=== PATIENT | female | born 1990 | race Caucasian/White ===

== ENCOUNTER 2019-04-24 09:22 | Inpatient (IN) | payer OTHER ==
[2019-04-24] MEDS ORDERED: LACTATED RINGERS 1,000 ML ONE ×2 (10:28→11:04)
--- NOTE | 2019-04-24 10:56 | Anesthesia Consultation ---
Anesthesia Consult and Med Hx Date of service: 04/24/19 - Airway Anesthetic Teeth Evaluation: Good ROM Head & Neck: Adequate Mental/Hyoid Distance: Adequate Mallampati Class: Class II Intubation Access Assessment: Probably Good - Pulmonary Exam CTA: Yes - Cardiac Exam Cardiac Exam: RRR - Pre-Operative Health Status ASA Pre-Surgery Classification: ASA2 Proposed Anesthetic Plan: Spinal - Pulmonary Hx Smoking: No Hx Asthma: No - Cardiovascular System Hx Hypertension: No - Central Nervous System Hx Seizures: No Hx Psychiatric Problems: No - Gastrointestinal Hx Gastroesophageal Reflux Disease: Yes - Endocrine Hx Renal Disease: No Hx Hypothyroidism: No Hx Hyperthyroidism: No - Hematic Hx Anemia: No Hx Sickle Cell Disease: No - Other Systems Hx Alcohol Use: No
--- NOTE | 2019-04-24 10:56 | Anesthesia Day of Surgery ---
Anesthesia Day of Surgery - Day of Surgery Patient Examined: Yes Patient H&P Reviewed: Yes Patient is NPO: Yes
[2019-04-24] MEDS ORDERED: DEXMEDETOMIDINE IV ONE (11:02)
[2019-04-24] MEDS ORDERED: PEPCID IV ONE (11:23)
[2019-04-24] MEDS ORDERED: BICITRA PO ONE (11:23)
[2019-04-24] MEDS ORDERED: REGLAN IV ONE (11:23)
[2019-04-24] MEDS ORDERED: PHENERGAN PO PRN (11:28)
[2019-04-24] MEDS ORDERED: NUBAIN IV PRN (11:28)
[2019-04-24] MEDS ORDERED: NARCAN 0.4 MG/1 ML IV PRN ×2 (11:28→13:43)
[2019-04-24] MEDS ORDERED: DILAUDID IV PRN ×2 (11:28)
[2019-04-24] MEDS ORDERED: ZOFRAN IV PRN ×2 (11:28→13:43)
[2019-04-24] MEDS ORDERED: PHENERGAN PR PRN (11:28)
[2019-04-24 11:43] LABS: Basophils % (Auto) 0.2 % (0.0-1.8); Eosinophils # (Auto) 0.1 K/mm3 (0.0-0.4); Eosinophils % (Auto) 1.3 % (0.0-4.3); Hematocrit 37.4 % (30.3-42.9); Hemoglobin 12.6 gm/dl (10.1-14.3); Lymphocytes # (Auto) 2.9 K/mm3 (1.2-5.4); Lymphocytes % (Auto) 25.4 % (13.4-35.0); Mean Corpuscular HGB Conc 34 % (30-34); Mean Corpuscular Volume 90 fl (79-97); Monocytes # (Auto) 0.8 K/mm3 (0.0-0.8); Monocytes % (Auto) 7.2 % (0.0-7.3); Platelet Count 133 K/mm3 (140-440); Red Blood Count 4.14 M/mm3 (3.65-5.03); Red Cell Distribution Width 14.5 % (13.2-15.2)
[2019-04-24] MEDS ORDERED: ANCEF/STERILE WATER 2 GM/20 ML 2 GM/20 ML SYRINGE IV NR (12:00)
[2019-04-24] MEDS ORDERED: LACTATED RINGERS 1,000 ML IV SCH (12:00)
[2019-04-24] MEDS ORDERED: SODIUM CHLORIDE FLUSH SYRINGE 10 ML IV NR (12:00)
[2019-04-24] MEDS ORDERED: TORADOL IV SCH (12:00)
[2019-04-24] MEDS ORDERED: PITOCin/NS 20 UNIT/1000ML DRIP 20 UNITS/1,000 ML BAG IV SCH ×2 (12:00→14:00)
[2019-04-24] MEDS ORDERED: TYLENOL PO SCH ×2 (12:00)
--- NOTE | 2019-04-24 12:03 | History and Physical Report ---
History of Present Illness Date of examination: 04/24/19 Date of admission: 04/24/19 09:22 Chief complaint: here at termfor repeat section History of present illness: G$P2 at 40 wks for repeat delivery. Had x2 prior sections. Past History Past Medical History: no pertinent history - Obstetrical History : 4 Medications and Allergies Allergies Allergy/AdvReac Type Severity Reaction Status Date / Time No Known Allergies Allergy Verified 04/24/19 10:38 Active Meds: Active Medications Acetaminophen (Tylenol) 650 mg PO Q6H RAYMOND Stop: 04/26/19 06:01 Hydromorphone HCl (Dilaudid) 0.5 mg IV Q5M PRN PRN Reason: Breakthrough Pain Stop: 04/24/19 23:59 Hydromorphone HCl (Dilaudid) 0.5 mg IV Q4H PRN PRN Reason: breakthrough pain > 7/10 Oxytocin/Sodium Chloride (Pitocin/Ns 20 Unit/1000ml Drip) 20 units in 1,000 mls @ 0 mls/hr IV TITR RAYMOND Lactated Ringer's (Lactated Ringers) 1,000 mls @ 2,250 mls/hr IV PREOP RAYMOND Stop: 04/25/19 12:27 Cefazolin Sodium (Ancef/Sterile Water 2 Gm/20 Ml) 2 gm in 20 mls @ 80 mls/hr IV PREOP NR; Protocol Stop: 04/24/19 23:59 Ketorolac Tromethamine (Toradol) 15 mg IV Q6HR RAYMOND Stop: 04/26/19 06:01 Nalbuphine HCl (Nubain) 10 mg IV Q2H PRN PRN Reason: Pain, Moderate (4-6) Naloxone HCl (Narcan 0.4 Mg/1 Ml) 0.2 mg IV Q2MIN PRN PRN Reason: Res Rate </= 8 or 02 SAT < 92% Ondansetron HCl (Zofran) 4 mg IV Q8H PRN PRN Reason: Nausea And Vomiting Promethazine HCl (Phenergan) 25 mg PO Q6H PRN PRN Reason: Nausea And Vomiting Promethazine HCl (Phenergan) 25 mg MS Q6H PRN PRN Reason: Nausea And Vomiting Sodium Chloride (Sodium Chloride Flush Syringe 10 Ml) 10 ml IV PRN NR Stop: 04/25/19 11:59 Review of Systems All systems: negative - Vital Signs Vital signs: Vital Signs Temp Pulse Resp BP 98.0 F 80 16 138/84 04/24/19 09:41 04/24/19 09:41 04/24/19 09:41 04/24/19 09:41 Temp Pulse Resp BP Pulse Ox 98.0 F 99 H 20 131/72 97 04/24/19 09:41 04/24/19 11:54 04/24/19 11:45 04/24/19 11:45 04/24/19 11:54 - Physical Exam Breasts: Positive: deferred Cardiovascular: Regular rate, Normal S1, Normal S2 Lungs: Positive: Clear to auscultation Abdomen: Positive: normal appearance, distention - Obstetrical Uterine Contraction Pattern: Irregular Results Result Diagrams: 04/24/19 10:10 Abnormal lab results 04/24/19 Range/Units 10:10 WBC 11.5 H (4.5-11.0) K/mm3 Plt Count 133 L (140-440) K/mm3 All other labs normal. Assessment and Plan - Patient Problems (1) Previous delivery affecting , antepartum Current Visit: Yes Status: Acute (2) delivery due to previous obstetrical trauma, delivered, current hospitalization Current Visit: Yes Status: Acute
[2019-04-24] MEDS ORDERED: WATER FOR IRRIG STERILE IR ONE (12:31)
[2019-04-24] MEDS ORDERED: NACL 0.9% IR ONE (12:31)
[2019-04-24] MEDS ORDERED: DIPRIVAN 10 MG/ML IV ONE (13:15)
[2019-04-24] MEDS ORDERED: NEO SYNEPHRINE ONE (13:21)
[2019-04-24] MEDS ORDERED: ZOFRAN ONE (13:21)
[2019-04-24] MEDS ORDERED: TYLENOL PO PRN (13:43)
[2019-04-24] MEDS ORDERED: LANSINOH TP PRN (13:43)
[2019-04-24] MEDS ORDERED: TUCKS PAD TP PRN (13:43)
--- NOTE | 2019-04-24 14:02 | Post Anesthesia Evaluation ---
- Post Anesthesia Evaluation Patient Participated: Yes Airway Patent: Yes Stable Respiratory Function: Yes Nausea/Vomiting: No Temp > 96.8F: Yes Pain Manageable: Yes Adequeate Hydration: Yes Anesthesia Complications: No Block Receding Appropriately: Yes
--- NOTE | 2019-04-24 14:09 | Operative Report ---
Operative Report Operative Report: Date of surgery: 04/24/2019. Admitting diagnoses: Term , previous sections, probable reginald toneal adhesions. Postoperative diagnoses: The same; omental adhesions confirmed. Procedures: Low segment transverse section and lysis of adhesions. Surgeon: MIKI Lopes MD Granite Setter: Keya Guzmán CRNA Anesthesia: Spinal block. Conditions: None Estimated blood loss 600 mL. Findings: There was a live baby boy in cephalic presentation. Baby weighed 7 lbs. 15 oz. scores 8 and 9. Both ovaries and fallopian tubes were grossly normal. There was an omental adhesion involving the greater omentum to the anterior parietal peritoneum just inferior to the umbilical stump. The uterus was unremarkable gravid structure. Procedure in details: She was taken to the operating room and given spinal blockade. She had an indwelling Edwards catheter. Patient was then put in the straight supine position with a slight left lateral tilt. She was prepped in the abdomen. The drapes were placed. A timeout was done. With the go ahead from the regional sales executive the operation begun with excision of the previous scar which had formed into a keloid. This was along the full length of a midline longitudinal subumbilical incision. After excision of the keloid incision was carried across the subcutaneous layer to the fascia which was also divided longitudinally. The anterior parietal peritoneum was easily identified and divided. With adequate opening into the abdominal cavity an alexxis retractor was placed. The bladder blade was applied. The uterovesical peritoneal flap was divided transversely allowing the bladder to be displaced caudally. The uterine incision was placed transversely in the lower segment. The cavity of the uterus was entered and bluntly with the Cassandra's forceps. The bandage scissors was used to control the direction of the uterine incision. The amniotic sac was ruptured with clear fluid. The head of the was lifted out of the false pelvis and delivered through the incision with fundal pressure. The airways were bulb suctioned and beginning with the mouth. The rest of the baby was delivered by continuing fundal pressure as well as traction on the mandibular processes of the babies jaw. The umbilical cord was double clamped and divided and the baby safely passed onto the pediatric team. Cord blood sample was taken for routine analysis. The placenta was moderately removed from the uterine cavity which was thereafter explored and was empty of any placental remnants. The uterine there are incision was repaired in 2 layers with #1 Vicryl. Hemostasis was excellent. The greater omental adhesion was divided and tied off with 2-0 Vicryl. The peritoneal cavity was again checked for hemostasis and this was satisfactory. The fascia and anterior parietal peritoneal was repaired in one block using loop PDS #1. The subcutaneous layer was hemostatic. The skin was closed subcuticularly with 4-0 Vicryl on a Nima needle. All sponges and instruments were accounted for. There were no complications. The estimated blood loss was 600 mL. The patient was transferred to the recovery room in very good condition.
[2019-04-24] MEDS: TORADOL IV PRN (18:00)
[2019-04-24] MEDS: LACTATED RINGERS 1,000 ML IV SCH (20:27)
[2019-04-24] MEDS: ANCEF/NS 1 GM/50 ML 1 GM/50 ML BAG IV SCH (20:33)
[2019-04-24] MEDS: MORPHINE IV PRN (21:12)
[2019-04-25] MEDS: TORADOL IV PRN ×2 (00:01→06:00)
[2019-04-25] MEDS: MORPHINE IV PRN (02:00)
[2019-04-25 02:04] LABS: Hematocrit 36.7 % (30.3-42.9); Hemoglobin 12.3 gm/dl (10.1-14.3)
[2019-04-25] MEDS: ANCEF/NS 1 GM/50 ML 1 GM/50 ML BAG IV SCH (04:03)
[2019-04-25] MEDS: LACTATED RINGERS 1,000 ML IV SCH (04:06)
--- NOTE | 2019-04-25 10:22 | Progress Note ---
Assessment and Plan A: POD #1 Stable P: Follow Routine PostOp Orders Anticipate D/C home in AM Subjective - Subjective Date of service: 04/25/19 Patient reports: appetite normal, voiding normally, pain well controlled, flatus, ambulating normally Revloc: doing well, bottle feeding Objective - Vital Signs Latest vital signs: Vital Signs Temp Pulse Resp BP BP Pulse Ox 04/25/19 08:37 98.6 F 79 18 125/70 95 04/25/19 05:09 98.2 F 85 18 126/61 93 04/25/19 04:45 98.2 F 85 18 126/61 96 04/25/19 01:20 98.5 F 92 H 18 116/73 95 04/24/19 21:21 97.6 F 87 18 121/58 94 04/24/19 15:45 98.1 F 70 18 102/56 04/24/19 14:30 61 16 102/56 99 04/24/19 14:15 80 17 100/50 99 04/24/19 14:00 78 19 96/52 99 04/24/19 13:55 73 16 98/53 96 04/24/19 13:51 98.6 F 74 18 93/50 96 04/24/19 11:54 99 H 97 04/24/19 11:49 86 97 04/24/19 11:45 82 20 131/72 04/24/19 11:44 78 96 04/24/19 11:42 80 131/72 Intake and Output 04/24/19 04/25/19 04/25/19 22:59 06:59 14:59 Intake Total 350 1556.25 120 Output Total 200 1000 Balance 150 556.25 120 Intake: IV 350 956.25 ANCEF/NS 1 GM/50 ML 1 gm 50 In 50 ml @ 100 mls/hr IV Q8H RAYMOND Rx#:[id number] Lactated Ringers 1,000 ml 956.25 @ 125 mls/hr IV DIRECT RAYMOND Rx#:[id number] Oral 600 120 Output: Urine 200 1000 Indwelling Catheter 400 Void 600 Other: Total, Intake Amount 240 120 Total, Output Amount 600 # Voids Void 1 - Exam Breasts: Present: normal Cardiovascular: Present: Regular rate Lungs: Present: Clear to auscultation, Normal air movement Abdomen: Present: normal appearance, soft, normal bowel sounds Uterus: Present: normal, firm, fundal height below umbilicus Extremities: Present: normal Incision: Present: normal, dry, dressed - Labs Labs: Abnormal lab results 04/24/19 Range/Units 10:10 WBC 11.5 H (4.5-11.0) K/mm3 Plt Count 133 L (140-440) K/mm3
[2019-04-25] MEDS: IBUPROFEN PO SCH ×2 (10:55→17:33)
[2019-04-25] MEDS: PERCOCET 5/325 PO PRN ×2 (14:59→20:42)
[2019-04-26] MEDS: IBUPROFEN PO SCH ×2 (01:37→09:54)
[2019-04-26] MEDS: PERCOCET 5/325 PO PRN ×2 (05:49→12:10)
--- NOTE | 2019-04-26 10:21 | Progress Note ---
Assessment and Plan A: POD #2 Stable P: Follow Routine PostOp Orders D/C Home today per patient request Depo Provera 150mg IM prior to discharge RTO in one Week Subjective - Subjective Date of service: 04/26/19 Patient reports: appetite normal, voiding normally, pain well controlled, flatus, ambulating normally : doing well, bottle feeding Objective - Vital Signs Latest vital signs: Vital Signs Temp Pulse Resp BP BP Pulse Ox 04/26/19 08:24 98.0 F 73 18 126/77 95 04/26/19 00:22 98.2 F 66 20 120/74 96 04/25/19 20:35 98.6 F 76 18 124/68 99 04/25/19 16:15 99.2 F 80 18 131/70 98 Intake and Output 04/25/19 04/26/19 04/26/19 22:59 06:59 14:59 Intake Total 720 120 Balance 720 120 Intake: Oral 240 120 Intake, Free Water 480 Other: Total, Intake Amount 240 120 # Voids Void 1 1 # Bowel Movements 1 - Exam Breasts: Present: normal Cardiovascular: Present: Regular rate Lungs: Present: Clear to auscultation, Normal air movement Abdomen: Present: normal appearance, soft, normal bowel sounds Uterus: Present: normal, firm, fundal height below umbilicus Extremities: Present: normal Incision: Present: normal, dry, intact
--- NOTE | 2019-04-26 10:23 | Discharge Summary ---
Providers - Providers Date of Admission: 04/24/19 09:22 Date of discharge: 04/26/19 Attending physician: PADMINI ALFARO MD Primary care physician: PADMINI ALFARO MD Hospitalization Reason for admission: section Delivery: Procedure: vertical Episiotomy: none Laceration: none Incision: normal, dry, intact Other procedures: none complications: none Discharge diagnosis: IUP at term delivered Condition at discharge: Good Disposition: DC-01 TO HOME OR SELFCARE Plan - Discharge Medications Prescriptions: HYDROcodone/APAP 5-325 [[place] 5/325] 1 tab PO Q4HR PRN 7 Days #30 tablet PRN Reason: Pain - Provider Discharge Summary Activity: routine, no sex for 6 weeks, no heavy lifting 4 weeks, no strenuous exercise Diet: routine Instructions: routine Additional instructions: [] Smoking cessation referral if applicable(refer to patient education folder for contact #) [] Refer to [facility]'s [facility] Booklet Call your doctor immediately for: * Fever > 100.5 * Heavy vaginal bleeding ( >1 pad per hour) * Severe persistent headache * Shortness of breath * Reddened, hot, painful area to leg or breast * Drainage or odor from incision. * Keep incision clean and dry at all times and follow doctor's instructions regarding bathing/showering - Follow up plan Follow up: PADMINI ALFARO MD [Primary Care Provider] - 7 Days
[2019-04-26] MEDS ORDERED: DEPO-PROVERA (CONTRACEPTION) IM NR (10:30)
[2019-04-26] MEDS ORDERED: M-M-R II VACCINE SUB-Q ONE (11:59)
[2019-04-26 13:22] VITALS: BP 127/84
== END 2019-04-26 13:30 | disposition home or self-care (01) | DRG 788 ==
LOC: APU 09:22 → OB 16:00
PROVIDERS: ADMIT Obstetrics & Gynecology; ATTEND Obstetrics & Gynecology
PROC: 10D00Z1 Extraction of Products of Conception, Low, Open Approach (ICD-10-PCS; principal; 2019-04-24)
PROC: 3E0234Z Introduction of Serum, Toxoid and Vaccine into Muscle, Percutaneous Approach (ICD-10-PCS; 2019-04-26)
DX: O34.211 Maternal care for low transverse scar from previous cesarean delivery (principal); O99.62 Diseases of the digestive system complicating childbirth; K66.0 Peritoneal adhesions (postprocedural) (postinfection); Z3A.40 40 weeks gestation of pregnancy; Z37.0 Single live birth; Z23 Encounter for immunization
CPT/HCPCS: 36415; 85014; 85018; 85025; 86592; 86850; 86900; 86901; 90707; G0378; J0690; J1050; J1885; J2270; J2370; J2405; J2590; J2704; J2765; J3490; J7120; Q0169